=== PATIENT | female | born 1975 | race Caucasian/White ===

== ENCOUNTER 2016-11-13 01:05 | Emergency (ER) | payer OTHER ==
[~2016-11-13] VITALS: Ht 167.6 cm; Wt 49.8 kg
[~2016-11-13 01:05] MED LIST: CNC/54 PO
[2016-11-13 01:07] VITALS: TEMP 36.8; Ht 167.6 cm; Wt 49.8 kg
[2016-11-13 01:47] LABS: URINE APPEARANCE CLEAR (CLEAR); URINE BILIRUBIN NEG (NEG); URINE COLOR YELLOW; URINE NITRITE NEG (NEG); URINE PH 6.5 (4.5-7.5); URINE SPECIFIC GRAVITY 1.022 (1.000-1.030); UROBILINOGEN NEG (NEG)
[2016-11-13 01:49] LABS: MANUAL MICROSCOPIC REQUIRED? NO; REVIEW REQ? NO
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
[2016-11-13 02:05] LABS: BENZODIAZEPINE, URINE NEG (NEG); COCAINE,URINE NEG (NEG); PHENCYCLIDINE, URINE NEG (NEG)
[2016-11-13 02:47] VITALS: BP 112/81; PULSE 84; O2SAT 100
== END 2016-11-13 02:48 | disposition home or self-care (01) ==
LOC: C.EDB 01:07
DX: F41.9 Anxiety disorder, unspecified (principal); F90.9 Attention-deficit hyperactivity disorder, unspecified type; Z86.73 Personal history of transient ischemic attack (TIA), and cerebral infarction without residual deficits; F17.200 Nicotine dependence, unspecified, uncomplicated; Z79.899 Other long term (current) drug therapy

== ENCOUNTER 2016-12-11 21:54 | Emergency (ER) | payer OTHER ==
[~2016-12-11] VITALS: Ht 167.6 cm; Wt 48.4 kg
[2016-12-11 21:59] VITALS: TEMP 36.9; Ht 167.6 cm; Wt 48.4 kg
[2016-12-11 23:58] VITALS: BP 108/70; PULSE 83; O2SAT 98
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
== END 2016-12-11 23:58 | disposition home or self-care (01) ==
LOC: C.EDB 21:57 → C.EDA 23:58
DX: R20.9 Unspecified disturbances of skin sensation (principal); R53.1 Weakness; F17.200 Nicotine dependence, unspecified, uncomplicated; F41.9 Anxiety disorder, unspecified; F90.0 Attention-deficit hyperactivity disorder, predominantly inattentive type; Z86.73 Personal history of transient ischemic attack (TIA), and cerebral infarction without residual deficits

== ENCOUNTER 2017-01-09 02:42 | Emergency (ER) | payer OTHER ==
[~2017-01-09] VITALS: Ht 167.6 cm; Wt 49.6 kg
[2017-01-09 02:47] VITALS: TEMP 37.3; Ht 167.6 cm; Wt 49.6 kg
[2017-01-09 03:53] LABS: BASO % 0.5 %; BASO ABS # 0.04 K/uL (0-0.2); COMPLETE YES; EOS % 1.7 %; HEMATOCRIT 37.5 % (37-47); IG% 0.1 %; LYMPH % 20.3 %; MEAN CORPUSCULAR HEMOGLOBIN 33.8 pg (25-34); MEAN PLATELET VOLUME 10.9 fL (7.4-10.4); MONO % 4.9 %; NEUT % 72.5 %; PLATELET COUNT 204 K/uL (130-400); RED BLOOD COUNT 3.99 M/uL (4.2-5.4); WHITE BLOOD COUNT 8.39 K/uL (4.8-10.8)
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
[2017-01-09 04:19] LABS: BUN/CREATININE RATIO 13.7 (10-20); CALCIUM 8.4 mg/dl (8.5-10.1); CREATININE 0.56 mg/dl (0.60-1.20)
[2017-01-09 04:26] LABS: PREG INTERNAL NEGATIVE QC NEG CLEAR BACKGROUND; PREG INTERNAL POSITIVE QC POS CONTROL LINE
[2017-01-09 04:30] LABS: THYROID STIMULATING HORMONE 2.67 uIu/ml (0.300-4.500)
[2017-01-09 05:03] LABS: URINE APPEARANCE CLEAR (CLEAR); URINE BILIRUBIN NEG (NEG); URINE COLOR YELLOW; URINE NITRITE NEG (NEG); URINE SPECIFIC GRAVITY 1.007 (1.000-1.030); UROBILINOGEN NEG (NEG)
[2017-01-09 05:08] LABS: MANUAL MICROSCOPIC REQUIRED? NO; REVIEW REQ? NO
[2017-01-09 05:38] LABS: BENZODIAZEPINE, URINE NEG (NEG); COCAINE,URINE NEG (NEG); PHENCYCLIDINE, URINE NEG (NEG)
--- NOTE | 2017-01-09 06:55 | EMERGENCY ROOM VISIT NOTE ---
ED Visit Note Patient had a 302 completed by myself and Swathi, patient will be seen by the crisis team for further evaluation and inpatient treatment
--- NOTE | 2017-01-09 09:20 | EMERGENCY ROOM VISIT NOTE ---
ED Visit Note This patient's case was signed out to me by Ender Johnson PA-C at the end of her shift. At the time I took over the patient's case there was a question whether or not the patient would be 302. Overnight had signed a 302 but there was no warrant therefore it was invalid. The embedded case manager for site did a safety evaluation on the patient and felt that she could be discharged to home. The patient was discharged home in stable condition. DIAGNOSIS: Psychosis TREATMENT PLAN: Use the resources given to you for further evaluation and treatment. If you have any recurrent problems he may return to the ER at any time.
[2017-01-09 09:26] VITALS: BP 116/58; PULSE 84; O2SAT 97
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
== END 2017-01-09 09:26 | disposition home or self-care (01) ==
LOC: C.EDB 02:45
DX: F29 Unspecified psychosis not due to a substance or known physiological condition (principal); F41.9 Anxiety disorder, unspecified; F90.9 Attention-deficit hyperactivity disorder, unspecified type; F32.9 Major depressive disorder, single episode, unspecified; Z86.73 Personal history of transient ischemic attack (TIA), and cerebral infarction without residual deficits; Z79.899 Other long term (current) drug therapy; Z82.49 Family history of ischemic heart disease and other diseases of the circulatory system; F17.210 Nicotine dependence, cigarettes, uncomplicated